=== PATIENT | female | born 1990 | race African-American/Black ===

== ENCOUNTER 2018-08-26 12:43 | Emergency (ER) | payer SELFPAY ==
[~2018-08-26] VITALS: Ht 167.6 cm; Wt 100.7 kg
[2018-08-26 13:38] VITALS: BP 121/65
[2018-08-26] MEDS ORDERED: ACETAMINOPHEN 500 MG TABLET PO ONE (13:45)
--- NOTE | 2018-08-26 13:51 | PHYS DOC ---
Past Medical History Past Medical History: No Pertinent History Smoking: Cigarettes Alcohol Use: None Drug Use: None Adult General Chief Complaint Chief Complaint: COUGH HPI HPI 28-year-old female presents to ER via POV with complaints of cold-like symptoms including fatigue, nonprod. cough, and sinus congestion. Patient reports she just finished a 10 day course of antibiotics and tapered dose of prednisone which she finished 2 days ago. Pt reports she has been taking nyquil, tylenol, and ibuprofen with last dose at 7:30 a.m. Pt denies fever. Reports over the past couple of days she has had dysuria denying hematuria or difficulty urinating. Pt reports her children have similar sxs. LMP is irregular due to control. Pt is daily smoker. Review of Systems Review of Systems Constitutional: Denies fever or chills. Reports generalized fatigue Eyes: Denies change in visual acuity, redness, or eye pain [] HENT: Reports nasal congestion/sore throat Respiratory: Denies shortness of breath. Reports nonprod. cough Cardiovascular: No additional information not addressed in HPI [] GI: Denies abdominal pain, nausea, vomiting, bloody stools or diarrhea [] : Denies hematuria. Reports dysuria. Denies vaginal sxs Musculoskeletal: Denies back/neck pain or joint pain [] Integument: Denies rash or skin lesions [] Neurologic: Denies headache, focal weakness or sensory changes. Denies dizziness /lightheadedness All other systems were reviewed and found to be within normal limits, except as documented in this note. Current Medications Current Medications Current Medications Medications (Trade) Dose Ordered Sig/Consuelo Start Time Stop Time Status Last Admin Dose Admin Acetaminophen (Tylenol) 1,000 mg 1X ONCE 08/26/18 13:45 08/26/18 13:46 DC 08/26/18 13:45 1,000 MG Allergies Allergies Allergies Coded Allergies Type Severity Reaction Last Updated Verified No Known Drug Allergies 08/26/18 No Physical Exam Physical Exam Constitutional: Well developed, well nourished, no acute distress, non-toxic appearance. [] HENT: Normocephalic, atraumatic, bilateral ears normal- no erythema/bulging TM, oropharynx moist- no pharyngeal/tonsillar swelling/erythema, no oral exudates, nose normal- no swelling bilat. turbinates. [] Eyes: Pupils equal, conjunctiva normal, no discharge. [] Neck: Normal range of motion, no tenderness, supple, no gross adenopathy Cardiovascular:Heart rate regular rhythm, no murmur [] Lungs & Thorax: Bilateral breath sounds clear to auscultation. Resp. equal/ nonlabored Abdomen: Bowel sounds normal, soft- no distention, no tenderness Skin: Warm, dry, no erythema, no rash. [] Back: No tenderness, no CVA tenderness. [] Extremities: No tenderness, no cyanosis, no clubbing, ROM intact, no edema. [] Neurologic: Alert and oriented X 3, normal motor function, normal sensory function, no focal deficits noted. [] Psychologic: Affect normal, judgement normal, mood normal. [] Current Patient Data Vital Signs Vital Signs Date Time Temp Pulse Resp B/P (MAP) Pulse Ox O2 Delivery O2 Flow Rate FiO2 08/26/18 13:38 97.6 64 16 121/65 (83) 97 Room Air 97.6 Lab Values Laboratory Tests Test 08/26/18 13:40 08/26/18 13:45 Urine Collection Type Clean catch Urine Color Yellow Urine Clarity Cloudy Urine pH 6.0 Urine Specific [place] 1.025 Urine Protein 30 mg/dL (NEG-TRACE) Urine Glucose (UA) Negative mg/dL (NEG) Urine Ketones (Stick) Negative mg/dL (NEG) Urine Blood Moderate (NEG) Urine Nitrite Positive (NEG) Urine Bilirubin Negative (NEG) Urine Urobilinogen Dipstick 1.0 mg/dL (0.2 mg/dL) Urine Leukocyte Esterase Large (NEG) Urine RBC 6-10 /HPF (0-2) Urine WBC Tntc /HPF (0-4) Urine Squamous Epithelial Cells Few /LPF Urine Bacteria Many /HPF (0-FEW) POC Urine HCG, Qualitative Hcg negative (Negative) EKG EKG [] Radiology/Procedures Radiology/Procedures [] Course & Med Decision Making Course & Med Decision Making Pertinent Labs reviewed. (See chart for details) Indepth conversation had with pt regarding cold like sxs and with no improvement with 10 day course of antibiotics sxs probable viral with children having similar sxs. Smoking cessation was discussed. Pt was afebrile with clear lung sounds in all lung clark. Pt exam was NL. Discussed symptomatic tx with OTC meds and f/u with PCP- explained viral sxs could last for wks. Pt begged for another Rx for antibiotics even with discussion on NL exam and viral sxs not requiring Rx. UA obtained as pt has c/o dysuria. Pt returned from bathroom and talking on cell phone in no visible distress. Discussed UA results with +nitrates/moderate blood/lg leus with tntc WBCs/6-10 RBCs on micro- neg UCG. Discussed plans for Keflex Rx and pt to f/u with PCP for re-eval if sxs persist. Pt is no visible distress at time of discharge discussion- she remains nontoxic in appearance. Discussed again viral sxs and symptomatic tx with OTC meds. Discussed increasing fld intake. Offered Rx of Tessalon Pearls and pt didn't want that- she said she wanted prescription for something to make her cold sxs "go away". Discharge instructions were discussed and education provided on s&s to return to ER for- will provide community clinic /physician info with discharge paperwork for f/u purposes. Staff Physician Addendum: I was working in the ER during the course of this patient's visit. I was available for consultation as needed, but I was not directly involved in the care of this patient. Dragon Disclaimer Dragon Disclaimer This electronic medical record was generated, in whole or in part, using a voice recognition dictation system. Departure Departure Impression: Primary Impression: Urinary tract infection Additional Impression: Viral syndrome Disposition: 01 HOME, SELF-CARE Condition: STABLE Referrals: NO PCP (PCP) Patient Instructions: Smoking Cessation, Urinary Tract Infection, Viral Syndrome Additional Instructions: Drink plenty of water. Tylenol and/or ibuprofen as directed on container as needed for pain. Scripts Fluconazole (DIFLUCAN) 150 Mg Tablet 1 TAB PO ONCE, #1 TAB 1 Refill Prov: MELISSA JORDAN APRN 08/26/18 Cephalexin (KEFLEX) 500 Mg Capsule 1 CAP PO BID, #14 CAP 0 Refills Prov: MELISSA JORDAN APRN 08/26/18 Problem Qualifiers MELISSA JORDAN APRN Aug 26, 2018 13:50 KODAK KONG MD Aug 26, 2018 16:59
[2018-08-26 13:57] LABS: BILIRUBIN,URINE NEGATIVE (NEG); CLARITY,URINE CLOUDY; COLOR,URINE YELLOW; NITRITE,URINE POSITIVE (NEG); PROTEIN,URINE 30 mg/dL (NEG-TRACE)
[2018-08-26 14:04] LABS: BACTERIA,URINE MANY /HPF (0-FEW); SQUAMOUS EPITHELIAL CELL,UR FEW /LPF; WBC,URINE TNTC /HPF (0-4)
[2018-08-26] MEDS ORDERED: CEPH-264 PO (14:10)
[2018-08-26] MEDS ORDERED: FLUC150T PO (14:17)
== END 2018-08-26 14:18 | disposition home or self-care (01) ==
LOC: ER 12:43
DX: N39.0 Urinary tract infection, site not specified (principal); R05 Cough; R09.81 Nasal congestion; B34.9 Viral infection, unspecified; F17.210 Nicotine dependence, cigarettes, uncomplicated
CPT/HCPCS: 81001; 81025; 87086; 99284